=== PATIENT | female | born 1975 | race Caucasian/White ===

== ENCOUNTER 2017-08-23 19:46 | Emergency (ER) | payer MEDICAID ==
[2017-08-23 21:37] VITALS: BP 106/49
== END 2017-08-23 21:37 | disposition home or self-care (01) ==
LOC: ED 19:46
DX: S29.012A Strain of muscle and tendon of back wall of thorax, initial encounter (principal); R07.89 Other chest pain; V49.20XA Unspecified car occupant injured in collision with unspecified motor vehicles in nontraffic accident, initial encounter; Y93.89 Activity, other specified; Y92.89 Other specified places as the place of occurrence of the external cause; Y99.8 Other external cause status; Z88.0 Allergy status to penicillin
CPT/HCPCS: J1885; Q0092

== ENCOUNTER 2017-09-15 21:53 | Emergency (ER) | payer MEDICAID ==
[2017-09-15 23:25] VITALS: BP 120/69
== END 2017-09-15 23:25 | disposition home or self-care (01) ==
LOC: ED 21:53
DX: J40 Bronchitis, not specified as acute or chronic (principal); Z79.51 Long term (current) use of inhaled steroids
CPT/HCPCS: J1885; Q0092

== ENCOUNTER 2017-09-24 17:39 | Emergency (ER) | payer MEDICAID ==
[2017-09-24 19:52] VITALS: BP 125/66
== END 2017-09-24 19:52 | disposition home or self-care (01) ==
LOC: ED 17:39
DX: J45.909 Unspecified asthma, uncomplicated (principal); Z88.0 Allergy status to penicillin
CPT/HCPCS: 82962; J2930; J7613; J7644